=== PATIENT | female | born 1985 | race Caucasian/White ===

== ENCOUNTER 2024-08-10 12:22 | Emergency (ER) | payer MEDICAID, SELFPAY ==
[2024-08-10 12:23] VITALS: BMI 16.7
[2024-08-10 12:51] VITALS: BP 132/80; PULSE 92; RESP 18; TEMP 36.9; O2SAT 99; BMI 17.4
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
--- NOTE | 2024-08-10 14:27 | PC.NURSE ---
Addendum entered by Magdiel Perry RN 08/10/24 14:48: @1447- PT CALLED FROM ED [facility] FOR LAST CALL; NO ANSWER. PT ELOPED. Original Note: @1400- PT CALLED FROM ED [facility]; NO ANSWER. @1427- PT CALLED AGAIN FROM ED [facility]; NO ANSWER.
== END 2024-08-10 14:49 | disposition left against medical advice (07) ==
PROVIDERS: Emergency Provider Family Medicine
DX: M26.69 Other specified disorders of temporomandibular joint (principal); W19.XXXA Unspecified fall, initial encounter; Z53.29 Procedure and treatment not carried out because of patient's decision for other reasons
CPT/HCPCS: 99281

== ENCOUNTER 2024-11-19 06:45 | Emergency (ER) | payer MEDICAID, SELFPAY ==
[2024-11-19 06:46] VITALS: BMI 18.8
[2024-11-19 06:55] VITALS: BP 148/98; PULSE 95; RESP 18; TEMP 37.3; O2SAT 99
--- NOTE | 2024-11-19 07:07 | PD.EDRME ---
Rapid Medical Screening Exam RME Arrival date/time: 11/19/24 06:45 39-year-old female with no known medical history presents to the emergency room with a chief complaint of left-sided cheek facial swelling x 2 weeks I have greeted and performed a focused initial assessment of this patient. A comprehensive ED assessment and evaluation of the patient, analysis of all test results, and completion of the medical decision making process will be conducted by additional ED providers. Chief Complaint: Skin/Abscess/Foreign Body Time Seen by Provider: 11/19/24 06:46 Vital signs: Vital Signs Temperature 99.1 F 11/19/24 06:55 Pulse Rate 95 11/19/24 06:55 Respiratory Rate 18 11/19/24 06:55 Blood Pressure 148/98 H 11/19/24 06:55 Pulse Oximetry (%) 99 11/19/24 06:55 Oxygen Delivery Method Room Air 11/19/24 06:55 Vital signs reviewed by provider: Yes
--- NOTE | 2024-11-19 07:53 | PC.NURSE ---
PT PLACED IN ROOM, LAB WENT IN TO GET BLOOD. 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 THIS RN WENT IN TO SPEAK W/PT, TO EDUCATED ON NEED FOR LABS DUE TO IMAGING. PT REFUSED, SAID SHE JUST WANTED TO COME IN GET HER CHEEK LOOKED AT AND GET IT REMOVED. PT HAD SIGNIFICANT SWELLING/MASS/ABSCESS TO LEFT CHEEK. MD WENT IN AND SPOKE W/PT TO EDUCATE HER ON NEED FOR BLOOD WORK AND IMAGING WELL, PT CONTINUED TO REFUSE CARE (SEE AMA FORM).
--- NOTE | 2024-11-19 08:02 | PD.EDADULT ---
ED General RME/HPI General Chief complaint: Skin/Abscess/Foreign Body Stated complaint: SWELLING TO LEFT CHEEK 2-3 WEEKS Time Seen by Provider: 11/19/24 06:46 Arrival date/time: 11/19/24 06:45 RME / HPI RME / HPI narrative: 11/19/24 06:45 39-year-old female with no known medical history presents to the emergency room with a chief complaint of left-sided cheek facial swelling x 2 weeks I have greeted and performed a focused initial assessment of this patient. A comprehensive ED assessment and evaluation of the patient, analysis of all test results, and completion of the medical decision making process will be conducted by additional ED providers. DR. RIZVI MAIN ED EVALUATION 39 year old female with no stated medical history presents to the ED for Related Data Home Medications ?Medication ?Instructions ?Recorded ?Confirmed No Known Home Medications 04/23/18 04/23/18 Allergies Allergy/AdvReac Type Severity Reaction Status Date / Time No Known Allergies Allergy Verified 08/10/24 12:27 Review of Systems Review of Systems Systems Reviewed: All systems reviewed, normal except as documented Past Medical History Past Medical History CARDIAC: Negative Congestive Heart Failure RESPIRATORY: Negative Chronic Obstructive Pulmonary Disease (COPD) GENITOURINARY: Negative Renal Disease ENDOCRINE: Negative Diabetes Mellitus Type 1 or Diabetes Mellitus Type 2 Social History SMOKING STATUS: Current every day smoker ED Exam Narrative Physical exam: GENERAL APPEARANCE: alert and oriented x 4, well-developed, well-nourished, no acute distress HEENT: atraumatic; pupils equal, round, reactive to light; EOMI; mucous membranes pink, moist; oropharynx clear, large firm mass left mandible, fixed, no fluctuance, no erythema, nontender NECK: Supple LUNGS: CTABL; no wheezes, no rales, no rhonchi HEART: Regular rate, regular rhythm; normal S1, S2; no murmurs ABDOMEN: non distended; normal BS; soft, no tenderness, no guarding, no rebound; no masses, no organomegaly, no hernia BACK: no CVA tenderness EXTREMITIES: atraumatic; no edema NEUROLOGIC: awake; alert and oriented x4; cranial nerves II-XII grossly intact; no focal sensory or motor deficits PSYCHIATRIC: appropriate mood and affect SKIN: warm, dry, normal color; no rashes Course Quality Measures none Orders Category Date Time Status CT Screening NOW Care 11/19/24 07:06 Completed Insert IV STAT Care 11/19/24 07:[address] soft tissue neck w con Stat Exams 11/19/24 07:06 Ordered Vital Signs Vital signs: Vital Signs Temperature 99.1 F 11/19/24 06:55 Pulse Rate 95 11/19/24 06:55 Respiratory Rate 18 11/19/24 06:55 Blood Pressure 148/98 H 11/19/24 06:55 Pulse Oximetry (%) 99 11/19/24 06:55 Oxygen Delivery Method Room Air 11/19/24 06:55 Pulse ox is 99% on room air which is adequate. Discharge Plan Plan Patient Disposition: Left Against Medical Advice Prescriptions/Referrals Prescriptions/Med Rec: No Action No Known Home Medications Problem List Clinical Impression: Mandibular mass Patient/Caregiver Discharge Instructions Print Language: Malay MDM Narrative MDM hospital course: Caitlin Schumacher am scribing for and in the presence of Dr. Rizvi. Procedures done or offered: Laboratory and imaging studies performed however patient refused and states she will follow up with her PCP at [facility]. Clinical Information Provided by patient Medical Records Reviewed [facility] I reviewed ED Visit on 08/10/2024 Meds/Rx Considered, not Ordered None Labs/Rad/Tests considered, not Ordered None Chronic Illness/Social Conditions which may negatively complicate care or outcome(s)-explain: None or not applicable EKG EKG not done Lab Interpretation Labs: none Imaging Imaging interpretation: none Medication Administration(s) none Diagnosis Most likely dx, and/or detailed dx discussion: Mandibular mass Dispositon Disposition: other (Left against medical advice )
== END 2024-11-19 08:15 | disposition left against medical advice (07) ==
PROVIDERS: Emergency Provider Emergency Medicine
DX: R22.0 Localized swelling, mass and lump, head (principal); Z53.29 Procedure and treatment not carried out because of patient's decision for other reasons
CPT/HCPCS: 80053; 81025; 85025; 99284